=== PATIENT | female | born 1970 | race Two or more races ===

== ENCOUNTER → 2017-05-24 | Outpatient (CLI) | payer OTHER ==
[~2017-05-24] MED LIST: DOCU-131 PO; ENAL10TA PO; FERR325T18 PO; METF10002 PO; NITR100C PO; OMEP-110 PO; ONDA8TAB16 SL
== END ==
LOC: CFH 12:56
PROVIDERS: ATTEND Physician Assistant
DX: N64.4 Mastodynia (principal)
CPT/HCPCS: 76641; G0204